=== PATIENT | female | born 1990 | race Caucasian/White ===

== ENCOUNTER 2021-01-13 12:14 | Emergency (ER) | payer BC, SELFPAY ==
--- NOTE | 2021-01-13 12:28 | ED.SKABFB ---
HPI - Skin/Abscess/Foreign Bdy General Chief complaint: Skin/Abscess/Foreign Body Stated complaint: Rash bilateral legs Time Seen by Provider: 01/13/21 12:35 Source: patient and RN notes reviewed Mode of arrival: ambulatory Limitations: no limitations History of Present Illness HPI narrative: 30-year-old female presents with concern for bumps on her lower legs. She reports they do not itch. Reports she was concerned she could have llhp-vibt-djv-mouth because she works in a daycare. Reports her mom has similar symptoms. She denies rhinorrhea, nasal congestion, sore throat, body aches, chills, fever, cough. She denies intervention. She denies any animals in the home, denies swollen lips, swollen tongue, trouble breathing. MD complaint: insect bite/sting Related Data Home Medications Medication Instructions Recorded Confirmed No Home Medications 01/13/21 01/13/21 Allergies Allergy/AdvReac Type Severity Reaction Status Date / Time ibuprofen AdvReac Unknown elevated Verified 01/13/21 12:34 liver enzymes Review of Systems Review of Systems: CONSTITUTIONAL: Denies malaise, chills, sweats, or fever. ENT: Denies rhinorrhea, congestion, sinus pain, otalgia or sore throat. CARDIOVASCULAR: Denies chest pain, palpitations, or edema. RESPIRATORY: Denies cough or dyspnea. SKIN: Reports scattered red bumps on her lower legs MUSCULOSKELETAL: Denies myalgia. NEUROLOGIC: Denies headache. All systems reviewed & are unremarkable except as noted in HPI and below PMFSH Family History Family History Father Asthma Other Family history of coronary artery disease Family history of kidney disease Hypertension Social History Social History Smoking status: Never smoker Second hand tobacco smoke exposure: No Alcohol intake: current Alcohol use details: socially; seldom Substance use: never Substance use type: does not use Gender identity (if verbalized by the patient): Female Comments At time of signature, agree with nursing past medical, surgical, social and family history. There is no relevant family history pertinent to the presenting complaint Exam Narrative: GENERAL: Well-appearing, well-nourished, and in no acute distress. HEAD: Normocephalic, atraumatic. EYES: PERRLA, conjunctivae clear, and EOMI. ENT: Mucous membranes moist NECK: Supple. No lymphadenopathy CHEST: Clear to auscultation. No respiratory distress. HEART: Regular rate and rhythm. SKIN: Warm, dry. Less than 10 scattered erythematous papules on bilateral lower extremities NEURO: Alert and oriented x3. PSYCH: Normal mood and affect Course Course Emergency Course: Patient is aware of diagnosis, understands and agrees to treatment plan. Anticipatory guidance given. Patient agrees to follow-up as directed and is aware of reasons to seek care at the emergency department. Portions of this record may have been created with voice recognition software Vital Signs Vital signs: Reviewed. MDM - Skin/Abscess/Foreign Bdy MDM Narrative Medical decision making narrative: Does not appear at this time to be erythema multiforme, bullous, SJS, TEN; no evidence at this time to suggest RMSF, endocarditis or Lyme disease; patient looks well, nontoxic and is tolerating oral intake; no neurologic signs or symptoms; no headache, photophobia or neck pain; afebrile; appropriate for initial outpatient treatment; discussed the importance of follow-up, patient agrees; question, viral exanthema, contact dermatitis, allergic dermatitis, eczema, urticaria, insect bites, scabies. No soft palate or uvula edema, no tongue, lip edema or other mucosal involvement, no respiratory compromise, no stridor, no wheezing, no wheezing, no history of syncope, no hypotension, no nausea, vomiting, or diarrhea. Instructed patient to go to nearest ER immediately
[2021-01-13 12:29] VITALS: BP 132/82; PULSE 100; RESP 18; TEMP 37.3; O2SAT 100
== END 2021-01-13 12:45 | disposition home or self-care (01) ==
PROVIDERS: Emergency Provider Nurse Practitioner; PCP Family Medicine
DX: S80.862A Insect bite (nonvenomous), left lower leg, initial encounter (principal); S80.861A Insect bite (nonvenomous), right lower leg, initial encounter; W57.XXXA Bitten or stung by nonvenomous insect and other nonvenomous arthropods, initial encounter
CPT/HCPCS: 99211; G0463

== ENCOUNTER 2022-08-27 18:14 | Emergency (ER) | payer BC, SELFPAY ==
--- NOTE | ~2022-08-27 | CT_ITS ---
EXAMINATION: CT BRAIN W/O DATE: 08/27/2022 22:43 INDICATION: Migraine headache for 12 days TECHNIQUE: Computed tomography (CT) of the head was performed without intravenous contrast. The dose- length product was 605.33 mGy-cm. Automated exposure control and iterative reconstruction technique w ere employed. COMPARISON: CT dated 04/09/2018a FINDINGS: Normal brain parenchymal volume for age. Normal lombardo-white differentiation. No acute intrac ranial hemorrhage, infarction, mass or mass effect. No ventriculomegaly or midline shift. Midline sagittal images demonstrate the cerebellar tonsils exte nding 2 mm below the foramen magnum, although this does not be criteria for Chiari malformation. Basi lar cisterns are patent. Paranasal sinuses and mastoids are pneumatized. No depressed skull fractures. IMPRESSION: 1. No acute intracranial abnormality. Reviewed, dictated and finalized at location A.
--- NOTE | ~2022-08-27 | CT_ITS ---
EXAMINATION: CT cervical spine wo con DATE: 08/27/2022 22:46 INDICATION: Neck pain TECHNIQUE: Computed tomography (CT) of the cervical spine was performed without intravenous contrast. The dose-length product was 443 mGy-cm. Automated exposure control and iterative reconstruction technique were employed. COMPARISON: None FINDINGS: No acute fracture, subluxation or dislocation. Lung apices are unremarkable. Odontoid proce ss is normal. Lateral masses are normally aligned. Craniovertebral junction is normal. Straightening of cervical lordosis which may be due to muscle spasm or patient positioning. No evidence for perched facet. No significant paraspinal soft tissue abnormality. IMPRESSION: 1. No significant abnormality of the cervical spine. Reviewed, dictated and finalized at location A.
[2022-08-27 19:18] VITALS: BP 135/89; PULSE 85; RESP 20; TEMP 36.8; O2SAT 99
[2022-08-27 21:00] VITALS: BP 133/90; PULSE 87; RESP 18; O2SAT 98
[2022-08-27] MEDS: METOCLOPRAMIDE HCL INJ 10 MG/2 ML VIAL IV PUSH (22:57)
[2022-08-27] MEDS: KETOROLAC 30 MG/ML VIAL (*BKC) IV PUSH (22:57)
[2022-08-27] MEDS: diphenhydrAMINE HCl INJ 50 MG/ML VIAL 25 MG IV PUSH (22:57)
[2022-08-27] MEDS: SODIUM CHLORIDE 0.9% IV 1,000 ML 999 ML IV CONT (22:57)
--- NOTE | 2022-08-28 00:06 | ED.HA ---
HPI - Headache General Chief Complaint: Headache <CHANTAL Abad Last Filed: 08/28/22 00:26> Stated Complaint: headache <CHANTAL Abad Last Filed: 08/28/22 00:26> Time Seen by Provider: 08/27/22 21:52 <CHANTAL Abad Last Filed: 08/28/22 00:26> Source: patient and old records reviewed <CHANTAL Abad Last Filed: 08/28/22 00:26> Mode of arrival: ambulatory <CHANTAL Abad Last Filed: 08/28/22 00:26> Limitations: no limitations <CHANTAL Abad Last Filed: 08/28/22 00:26> History of Present Illness HPI Narrative: Patient is a 31-year-old female who presents to the ED with report of migraine headache since 08/15. Patient reports a family history of migraines, but states she has never experienced a headache this prolonged before. Pain does extend into her neck and right ear. She denies any recent injury or fall. She has been to an urgent care and seen her PCP twice for this. She states the pain is intermittently relieved with medications, but will return. She has been taking Tylenol, Advil, Sumatriptan, Rizatriptan, Toradol. She also reports having photophobia, phonophobia, intermittent nausea, but denies weakness, confusion, vision changes, vomiting, abdominal pain, fevers, syncope, numbness. <Devorah Gamez PA-C - Last Filed: 08/28/22 00:26> Related Data Allergies/Adverse Reactions: Allergies Allergy/AdvReac Type Severity Reaction Status Date / Time lemon Allergy Mild hives Verified 08/27/22 19:26 ibuprofen AdvReac Unknown elevated Verified 08/27/22 19:26 liver enzymes Tide Detergent Allergy Mild hives Uncoded 08/27/22 19:26 <CHANTAL Abad Last Filed: 08/28/22 00:26> Review of Systems Review of Systems: CONSTITUTIONAL: Denies fever, chills, or sweats. EYES: See HPI. ENT: See HPI. CARDIOVASCULAR: Denies chest pain. RESPIRATORY: Denies dyspnea. GASTROINTESTINAL: See HPI. MUSCULOSKELETAL: See HPI. NEUROLOGIC: See HPI. <Devorah Gamez PA-C - Last Filed: 08/28/22 00:26> All systems reviewed & are unremarkable except as noted in HPI and below <Devorah Gamez PA-C - Last Filed: 08/28/22 00:26> [facility] Past Medical History Medical History: Medical History Hypothyroidism <Devorah Gamez PA-C - Last Filed: 08/28/22 00:26> Surgical History Surgical History: Surgical History No pertinent past surgical history <Devorah Gamez PA-C - Last Filed: 08/28/22 00:26> Family History Family History: Family History Father Asthma Other Family history of coronary artery disease Family history of kidney disease Hypertension <Devorah Gamez PA-C - Last Filed: 08/28/22 00:26> Social History Social History: Social History Smoking status: Never smoker Second hand tobacco smoke exposure: No Alcohol intake: current Alcohol use details: socially; seldom Substance use: never Substance use type: does not use Lack of Transportation: No Lack of Food: Never True Current Housing: I Have Housing Concerned About Future Housing: No Difficulty Paying Gas/Electric Bills: No Difficulty Paying for Meds: No Currently Unemployed: No Education: Associate Degree Difficulty w/ Childcare or Family Care: No Gender identity (if verbalized by the patient): Female Spiritual care concerns: No Agree to blood products: Yes <Devorah Gamez PA-C - Last Filed: 08/28/22 00:26> Exam Narrative: GENERAL: Well appearing, obese, non-toxic, in no acute distress. HEAD: Normocephalic, atraumatic. EYES: PERRL/EOMI, conjunctivae clear bilaterally. No nystagmus. EARS: T
[2022-08-28 00:42] VITALS: BP 118/69; PULSE 90; RESP 18; TEMP 36.6; O2SAT 99
== END 2022-08-28 00:43 | disposition home or self-care (01) ==
PROVIDERS: Emergency Provider Physician Assistant; PCP Family Medicine
DX: G43.909 Migraine, unspecified, not intractable, without status migrainosus (principal); E03.9 Hypothyroidism, unspecified
CPT/HCPCS: 70450; 72125; 96365; 96366; 96375; 99284; J0131; J1100; J1200; J1885; J2765; J7030